=== PATIENT | male | born 1965 | race African-American/Black ===

== ENCOUNTER 2018-05-23 08:03 | Emergency (ER) | payer BC ==
[~2018-05-23] VITALS: Ht 177.8 cm; Wt 97.1 kg
[2018-05-23 08:43] LABS: Basophils # (auto) 0.1 uL; Basophils % (auto) 0.9 % (0.0-2.0); Eosinophils # (auto) 0.2 uL; Eosinophils % (auto) 1.5 % (0.0-7.0); Hematocrit 36.6 % (41.0-53.0); Hemoglobin 12.3 g/dL (13.5-17.5); Lymphocytes # (auto) 1.9 uL; Lymphocytes % (auto) 17.8 % (10.0-50.0); Mean Corpuscular Hemoglobin 29.7 pg (28.0-32.0); Mean Corpuscular Hgb Conc. 33.5 g/dL (32.0-36.0); Mean Corpuscular Volume 88.8 fL (80.0-100.0); Monocytes # (auto) 1.2 uL; Neutrophils # (auto) 7.2 uL; Neutrophils % (auto) 68.8 % (37.0-80.0); Platelet Count (auto) 239 10^3/uL (140-450); Red Blood Cells 4.12 10^6/uL (4.5-5.90); Red Cell Distribution Width 14.1 % (11.8-14.3); White Blood Cell 10.5 10^3/uL (4.4-10.8)
[2018-05-23] MEDS ORDERED: ASPirin 81 mg TAB PO ONE (08:45)
[2018-05-23] MEDS ORDERED: NITROGLYCERIN 0.4 MG SL TAB SL ONE (08:45)
[2018-05-23 09:20] LABS: Alanine Aminotransferase 22 U/L (16-61); Albumin 3.7 g/dL (3.4-5.0); Alkaline Phosphatase 60 U/L (45-117); Anion Gap 10 (5-15); Aspartate Aminotransferase 14 U/L (15-37); BUN/Creatinine Ratio 12.4; Bilirubin, Total 0.5 mg/dL (0.2-1.0); Blood Urea Nitrogen 16 mg/dL (7-18); Calcium 8.7 mg/dL (8.5-10.1); Carbon Dioxide 25 mmol/L (21-32); Chloride 106 mmol/L (98-107); GFR African American 76 mL/min; GFR Non-African American 62 mL/min; Glucose 173 mg/dL (74-106); Sodium 141 mmol/L (136-145); Total Protein 7.9 g/dL (6.4-8.2)
[2018-05-23] MEDS ORDERED: AZITHROMYCIN 500MG/ 250ML 250 ML IV ONE (13:30)
[2018-05-23] MEDS ORDERED: cefTRIAXone 1GM/10ml IVPUSH 10 ML IV ONE (13:30)
[2018-05-23 13:36] VITALS: BP 131/78
== END 2018-05-23 14:34 | disposition left against medical advice (07) ==
LOC: ER 08:03
DX: I24.9 Acute ischemic heart disease, unspecified (principal); E11.9 Type 2 diabetes mellitus without complications; E78.5 Hyperlipidemia, unspecified; I10 Essential (primary) hypertension; F17.210 Nicotine dependence, cigarettes, uncomplicated; Z53.29 Procedure and treatment not carried out because of patient's decision for other reasons
CPT/HCPCS: 36415; 71046; 80053; 84484; 85025; 93005; 94761; 96365; 96375; 99285; J0456; J0696

== ENCOUNTER 2018-05-27 17:46 | Inpatient (IN) | payer BC ==
[~2018-05-27] VITALS: Ht 177.8 cm; Wt 99.2 kg
[2018-05-27] MEDS ORDERED: IPRATROPIUM BROM 0.5 MG/2.5ML INH SOL NEB ONE (19:15)
[2018-05-27] MEDS ORDERED: ALBUTEROL SULF 2.5 MG/0.5ML(0.5%) NEB SOLN NEB ONE (19:15)
[2018-05-27] MEDS ORDERED: methylPREDNISolone SOD SUCC 125 MG/2 ML VL IM ONE (19:15)
[2018-05-27] MEDS ORDERED: cefTRIAXone SOD 1,000 MG VL IM ONE (19:15)
[2018-05-27] MEDS ORDERED: LIDOCAINE 1% (LOCAL ANESTH.) PF 5ml SDV ONE (20:02)
[2018-05-27] MEDS ORDERED: TUBERCULIN PPD 5 UNIT/0.1 ML ID ONE (21:45)
[2018-05-27 22:44] LABS: Basophils # (auto) 0 uL; Basophils % (auto) 0.3 % (0.0-2.0); Eosinophils # (auto) 0 uL; Eosinophils % (auto) 0.3 % (0.0-7.0); Hematocrit 35.1 % (41.0-53.0); Hemoglobin 12.2 g/dL (13.5-17.5); Lymphocytes # (auto) 0.7 uL; Lymphocytes % (auto) 6.7 % (10.0-50.0); Mean Corpuscular Hemoglobin 30.6 pg (28.0-32.0); Mean Corpuscular Hgb Conc. 34.7 g/dL (32.0-36.0); Mean Corpuscular Volume 88.3 fL (80.0-100.0); Monocytes # (auto) 0.5 uL; Monocytes % (auto) 4.4 % (0.0-12.0); Neutrophils # (auto) 9.7 uL; Neutrophils % (auto) 88.3 % (37.0-80.0); Nucleated Red Blood Cells % 0.1 %; Platelet Count (auto) 277 10^3/uL (140-450); Red Blood Cells 3.98 10^6/uL (4.5-5.90); Red Cell Distribution Width 13.9 % (11.8-14.3)
[2018-05-27 22:58] LABS: Albumin 2.9 g/dL (3.4-5.0); BUN/Creatinine Ratio 18.6
[2018-05-27 23:01] LABS: Bilirubin, Total 0.6 mg/dL (0.2-1.0); Total Protein 8.2 g/dL (6.4-8.2)
[2018-05-28] MEDS ORDERED: ACETAMINOPHEN 500 MG TAB PO PRN (01:30)
[2018-05-28] MEDS ORDERED: POTASSIUM CHL 20 Meq TABLET PO ONE (04:00)
[2018-05-28] MEDS ORDERED: DEXTROSE (50%) 50ML SYRG IV PRN (04:00)
[2018-05-28] MEDS: metroNIDAZOLE 500MG/100ML 100 ML IV SCH ×2 (05:16→14:45)
[2018-05-28] MEDS: ACCU-CHEK COMFORT CURVE STRIP VI SCH ×4 (06:35→21:21)
[2018-05-28] MEDS: buPROPion HCL 75 MG TAB PO SCH ×2 (06:36→18:46)
[2018-05-28] MEDS: InsuLIN REG 1unit/0.01ml Soln (100units/ml) SC SCH ×4 (06:36→21:22)
[2018-05-28 10:37] LABS: Basophils # (auto) 0.1 uL; Basophils % (auto) 0.5 % (0.0-2.0); Eosinophils # (auto) 0 uL; Hematocrit 37.1 % (41.0-53.0); Hemoglobin 12.4 g/dL (13.5-17.5); Lymphocytes % (auto) 7.7 % (10.0-50.0); Mean Corpuscular Hemoglobin 29.7 pg (28.0-32.0); Mean Corpuscular Hgb Conc. 33.4 g/dL (32.0-36.0); Mean Corpuscular Volume 88.8 fL (80.0-100.0); Monocytes # (auto) 0.4 uL; Monocytes % (auto) 3.2 % (0.0-12.0); Neutrophils # (auto) 11.7 uL; Neutrophils % (auto) 88.6 % (37.0-80.0); Platelet Count (auto) 313 10^3/uL (140-450); Red Blood Cells 4.17 10^6/uL (4.5-5.90); Red Cell Distribution Width 14.1 % (11.8-14.3); White Blood Cell 13.2 10^3/uL (4.4-10.8)
[2018-05-28 10:53] LABS: BUN/Creatinine Ratio 19.5; Calcium 9.2 mg/dL (8.5-10.1); Potassium 3.4 mmol/L (3.5-5.1)
[2018-05-28] MEDS: HCTZ 25 MG TAB PO SCH (11:00)
[2018-05-28] MEDS: LISINOPRIL 20 MG TAB PO SCH (11:00)
[2018-05-28] MEDS: ISONIAZID 300 MG TAB PO SCH (11:00)
[2018-05-28 12:56] VITALS: BP 117/88
[2018-05-28 17:17] VITALS: BP 131/74
[2018-05-28] MEDS ORDERED: VANCOMYCIN PER PHARMACY 0 MG IV SCH (19:00)
[2018-05-28] MEDS: VANCOMYCIN 1GM/250ML 250 ML IV SCH (19:55)
[2018-05-28] MEDS: ATORVASTATIN 20 MG TAB PO SCH (21:21)
[2018-05-28 21:49] VITALS: BP 125/80
[2018-05-29] MEDS: PIPERACILLIN-TAZO 4.5GM 100 ML IV SCH ×4 (00:06→17:30)
[2018-05-29 05:00] VITALS: BP 132/84
[2018-05-29] MEDS: buPROPion HCL 75 MG TAB PO SCH ×2 (06:25→18:26)
[2018-05-29] MEDS: ACCU-CHEK COMFORT CURVE STRIP VI SCH ×4 (06:26→22:27)
[2018-05-29] MEDS: InsuLIN REG 1unit/0.01ml Soln (100units/ml) SC SCH ×4 (06:26→22:28)
[2018-05-29] MEDS: VANCOMYCIN 1GM/250ML 250 ML IV SCH ×2 (08:38→19:59)
[2018-05-29 09:48] VITALS: BP 118/70
[2018-05-29] MEDS: ISONIAZID 300 MG TAB PO SCH (10:06)
[2018-05-29] MEDS: HCTZ 25 MG TAB PO SCH (10:06)
[2018-05-29] MEDS: LISINOPRIL 20 MG TAB PO SCH (10:07)
[2018-05-29 13:00] VITALS: BP 137/75
[2018-05-29 17:17] VITALS: BP 114/87
[2018-05-29 21:53] VITALS: BP 134/78
[2018-05-29] MEDS: ATORVASTATIN 20 MG TAB PO SCH (22:27)
[2018-05-30] MEDS: PIPERACILLIN-TAZO 4.5GM 100 ML IV SCH ×4 (00:02→18:56)
[2018-05-30 04:58] VITALS: BP 111/73
[2018-05-30] MEDS: InsuLIN REG 1unit/0.01ml Soln (100units/ml) SC SCH ×4 (06:13→22:10)
[2018-05-30] MEDS: buPROPion HCL 75 MG TAB PO SCH ×2 (06:13→18:57)
[2018-05-30] MEDS: ACCU-CHEK COMFORT CURVE STRIP VI SCH ×4 (06:13→22:10)
[2018-05-30 08:44] LABS: Basophils # (auto) 0.1 uL; Basophils % (auto) 0.9 % (0.0-2.0); Eosinophils # (auto) 0.2 uL; Eosinophils % (auto) 1.8 % (0.0-7.0); Hematocrit 34.7 % (41.0-53.0); Hemoglobin 11.7 g/dL (13.5-17.5); Lymphocytes # (auto) 1.8 uL; Lymphocytes % (auto) 17.9 % (10.0-50.0); Mean Corpuscular Hgb Conc. 33.7 g/dL (32.0-36.0); Mean Corpuscular Volume 88.9 fL (80.0-100.0); Monocytes % (auto) 9.7 % (0.0-12.0); Neutrophils # (auto) 6.8 uL; Neutrophils % (auto) 69.7 % (37.0-80.0); Platelet Count (auto) 314 10^3/uL (140-450); Red Cell Distribution Width 14.4 % (11.8-14.3); White Blood Cell 9.8 10^3/uL (4.4-10.8)
[2018-05-30 09:00] VITALS: BP 127/89
[2018-05-30 09:25] LABS: Albumin 2.8 g/dL (3.4-5.0); Bilirubin, Total 0.5 mg/dL (0.2-1.0); Calcium 8.6 mg/dL (8.5-10.1); Total Protein 7.6 g/dL (6.4-8.2)
[2018-05-30] MEDS: VANCOMYCIN 1GM/250ML 250 ML IV SCH ×2 (09:40→17:56)
[2018-05-30] MEDS: ISONIAZID 300 MG TAB PO SCH (09:41)
[2018-05-30] MEDS: LISINOPRIL 20 MG TAB PO SCH (09:42)
[2018-05-30] MEDS: HCTZ 25 MG TAB PO SCH (10:00)
[2018-05-30 13:00] VITALS: BP 129/88
[2018-05-30] MEDS ORDERED: POTASSIUM CHL 20 Meq TABLET PO ONE (14:30)
[2018-05-30 17:00] VITALS: BP 144/97
[2018-05-30] MEDS ORDERED: FELO5TAB PO (17:40)
[2018-05-30] MEDS ORDERED: LISI10TA6 PO (17:40)
[2018-05-30] MEDS ORDERED: PIO30T PO (17:40)
[2018-05-30] MEDS ORDERED: HYDR25TA4 PO (17:40)
[2018-05-30] MEDS ORDERED: GLYB2.5T8 PO (17:40)
[2018-05-30] MEDS ORDERED: METO25TA5 PO (17:40)
[2018-05-30] MEDS ORDERED: METF-370 PO (17:40)
[2018-05-30] MEDS ORDERED: SITA50TA PO (17:40)
[2018-05-30 22:00] VITALS: BP 156/93
[2018-05-30] MEDS: ATORVASTATIN 20 MG TAB PO SCH (22:09)
[2018-05-31] MEDS: PIPERACILLIN-TAZO 4.5GM 100 ML IV SCH ×4 (00:54→22:33)
[2018-05-31] MEDS: VANCOMYCIN 1GM/250ML 250 ML IV SCH ×2 (02:04→10:39)
[2018-05-31 05:00] VITALS: BP 155/95
[2018-05-31 05:46] LABS: Basophils # (auto) 0 uL; Basophils % (auto) 0.3 % (0.0-2.0); Eosinophils # (auto) 0.2 uL; Eosinophils % (auto) 2.3 % (0.0-7.0); Hematocrit 33.4 % (41.0-53.0); Hemoglobin 11.7 g/dL (13.5-17.5); Lymphocytes # (auto) 1.9 uL; Lymphocytes % (auto) 22.3 % (10.0-50.0); Mean Corpuscular Hgb Conc. 35.1 g/dL (32.0-36.0); Mean Corpuscular Volume 88.2 fL (80.0-100.0); Monocytes # (auto) 0.8 uL; Neutrophils # (auto) 5.5 uL; Neutrophils % (auto) 65.1 % (37.0-80.0); Nucleated Red Blood Cells % 0.3 %; Red Blood Cells 3.78 10^6/uL (4.5-5.90); Red Cell Distribution Width 14.3 % (11.8-14.3); White Blood Cell 8.5 10^3/uL (4.4-10.8)
[2018-05-31 05:47] LABS: Platelet Count (auto) 308 10^3/uL (140-450)
[2018-05-31 06:09] LABS: BUN/Creatinine Ratio 11.5; Calcium 8.4 mg/dL (8.5-10.1)
[2018-05-31] MEDS: InsuLIN REG 1unit/0.01ml Soln (100units/ml) SC SCH ×4 (06:33→22:33)
[2018-05-31] MEDS: buPROPion HCL 75 MG TAB PO SCH ×2 (06:33→18:16)
[2018-05-31] MEDS: ACCU-CHEK COMFORT CURVE STRIP VI SCH ×4 (06:33→22:34)
[2018-05-31 09:02] VITALS: BP 140/73
[2018-05-31] MEDS: ISONIAZID 300 MG TAB PO SCH (10:39)
[2018-05-31] MEDS: LISINOPRIL 20 MG TAB PO SCH (10:40)
[2018-05-31 13:01] VITALS: BP 142/87
[2018-05-31 17:26] VITALS: BP 157/92
[2018-05-31 17:45] VITALS: BP 138/93
[2018-05-31] MEDS: VANCOMYCIN 1,250 MG in D5W 5% 250 ML IV SCH (18:16)
[2018-05-31] MEDS: POTASSIUM CHL 20 Meq TABLET PO SCH (18:17)
[2018-05-31] MEDS: HCTZ 25 MG TAB PO SCH (18:17)
[2018-05-31] MEDS ORDERED: PIPERACILLIN-TAZO 4.5GM 100 ML IV SCH (20:00)
[2018-05-31 22:30] VITALS: BP 149/99
[2018-05-31] MEDS: ATORVASTATIN 20 MG TAB PO SCH (22:33)
[2018-06-01] VITALS (7 sets, daily range): BP systolic 123–156; BP diastolic 65–97
[2018-06-01] MEDS: VANCOMYCIN 1,250 MG in D5W 5% 250 ML IV SCH ×2 (01:43→10:00)
[2018-06-01] MEDS: PIPERACILLIN-TAZO 4.5GM 100 ML IV SCH ×4 (04:15→22:44)
[2018-06-01] MEDS: ACCU-CHEK COMFORT CURVE STRIP VI SCH ×4 (06:36→22:45)
[2018-06-01] MEDS: InsuLIN REG 1unit/0.01ml Soln (100units/ml) SC SCH ×4 (06:36→22:45)
[2018-06-01] MEDS: buPROPion HCL 75 MG TAB PO SCH ×2 (06:36→19:00)
[2018-06-01] MEDS: POTASSIUM CHL 20 Meq TABLET PO SCH (10:00)
[2018-06-01] MEDS: HCTZ 25 MG TAB PO SCH (10:00)
[2018-06-01] MEDS: LISINOPRIL 20 MG TAB PO SCH (10:00)
[2018-06-01] MEDS: ISONIAZID 300 MG TAB PO SCH (10:00)
[2018-06-01] MEDS: VANCOMYCIN 1GM/250ML 250 ML IV SCH (19:25)
[2018-06-01] MEDS: ATORVASTATIN 20 MG TAB PO SCH (22:44)
[2018-06-02] MEDS: VANCOMYCIN 1GM/250ML 250 ML IV SCH ×2 (02:55→11:00)
[2018-06-02] MEDS: PIPERACILLIN-TAZO 4.5GM 100 ML IV SCH ×2 (04:00→10:10)
[2018-06-02 05:00] VITALS: BP 159/69
[2018-06-02 06:22] LABS: Basophils # (auto) 0 uL; Basophils % (auto) 0.6 % (0.0-2.0); Eosinophils # (auto) 0.2 uL; Eosinophils % (auto) 2.6 % (0.0-7.0); Hematocrit 33.2 % (41.0-53.0); Hemoglobin 11.3 g/dL (13.5-17.5); Lymphocytes # (auto) 1.7 uL; Lymphocytes % (auto) 20.2 % (10.0-50.0); Mean Corpuscular Hemoglobin 30.2 pg (28.0-32.0); Mean Corpuscular Volume 88.7 fL (80.0-100.0); Monocytes % (auto) 11.9 % (0.0-12.0); Neutrophils # (auto) 5.3 uL; Neutrophils % (auto) 64.7 % (37.0-80.0); Nucleated Red Blood Cells % 0.1 %; Platelet Count (auto) 369 10^3/uL (140-450); Red Blood Cells 3.74 10^6/uL (4.5-5.90); Red Cell Distribution Width 14.1 % (11.8-14.3); White Blood Cell 8.2 10^3/uL (4.4-10.8)
[2018-06-02] MEDS: ACCU-CHEK COMFORT CURVE STRIP VI SCH ×2 (06:31→11:33)
[2018-06-02] MEDS: InsuLIN REG 1unit/0.01ml Soln (100units/ml) SC SCH ×2 (06:31→11:33)
[2018-06-02] MEDS: buPROPion HCL 75 MG TAB PO SCH (06:31)
[2018-06-02 06:51] LABS: BUN/Creatinine Ratio 7.7; Calcium 8.5 mg/dL (8.5-10.1)
[2018-06-02 07:11] LABS: Potassium 2.9 mmol/L (3.5-5.1)
[2018-06-02] MEDS ORDERED: POTASSIUM CHL 20 Meq TABLET PO ONE (07:30)
[2018-06-02 08:45] VITALS: BP 157/100
[2018-06-02] MEDS: LISINOPRIL 20 MG TAB PO SCH (10:10)
[2018-06-02] MEDS: HCTZ 25 MG TAB PO SCH (10:11)
[2018-06-02] MEDS: POTASSIUM CHL 20 Meq TABLET PO SCH (10:12)
[2018-06-02] MEDS: ISONIAZID 300 MG TAB PO SCH (10:15)
[2018-06-02 13:00] VITALS: BP 164/102
== END 2018-06-02 18:23 | disposition home or self-care (01) | DRG 195 ==
LOC: ER 17:50 → OVERFLOW 17:51 → WEST WING 05-28 08:12
PROVIDERS: ADMIT Nurse Practitioner Family; ATTEND Internal Medicine Pulmonary Disease
DX: J18.9 Pneumonia, unspecified organism (principal); E78.5 Hyperlipidemia, unspecified; E11.9 Type 2 diabetes mellitus without complications; D64.9 Anemia, unspecified; E87.6 Hypokalemia; F17.210 Nicotine dependence, cigarettes, uncomplicated; I10 Essential (primary) hypertension
CPT/HCPCS: 36415; 71046; 71250; 80048; 80053; 80202; 82962; 85025; 85652; 87040; 87070; 87205; 94640; 96365; 96367; 96372; A6257; J0696; J1815; J2543; J3490; J7060

== ENCOUNTER 2018-09-25 09:02 | Emergency (ER) | payer BC ==
[~2018-09-25] VITALS: Ht 180.3 cm; Wt 97.1 kg
[~2018-09-25 09:02] MED LIST: FELO5TAB PO; GLYB2.5T8 PO; HYDR25TA4 PO; LISI10TA6 PO; METF-370 PO; METO25TA5 PO; PIO30T PO; SITA50TA PO
[2018-09-25 09:05] VITALS: BP 175/91
[2018-09-25] MEDS ORDERED: KETOROLAC TROMETH 60MG/2ML VIAL IM ONE (10:00)
[2018-09-25] MEDS ORDERED: METHOCARBAMOL 500 MG TAB PO ONE (10:00)
== END 2018-09-25 10:27 | disposition home or self-care (01) ==
LOC: ER 09:02
DX: M75.01 Adhesive capsulitis of right shoulder (principal); E11.9 Type 2 diabetes mellitus without complications; E78.5 Hyperlipidemia, unspecified; I10 Essential (primary) hypertension; F17.210 Nicotine dependence, cigarettes, uncomplicated; W01.0XXA Fall on same level from slipping, tripping and stumbling without subsequent striking against object, initial encounter; Y93.89 Activity, other specified; Y92.89 Other specified places as the place of occurrence of the external cause; Y99.8 Other external cause status
CPT/HCPCS: 73030; 96372; 99283; J1885

== ENCOUNTER 2018-10-13 00:44 | Inpatient (IN) | payer BC ==
[~2018-10-13] VITALS: Ht 180.3 cm; Wt 93.0 kg
[2018-10-13] MEDS ORDERED: ACETAMINOPHEN 325 MG TAB PO ONE (01:45)
[2018-10-13 02:20] LABS: Basophils # (auto) 0.1 uL; Basophils % (auto) 0.4 % (0.0-2.0); Eosinophils # (auto) 0 uL; Eosinophils % (auto) 0.1 % (0.0-7.0); Hematocrit 35.3 % (41.0-53.0); Hemoglobin 11.7 g/dL (13.5-17.5); Lymphocytes # (auto) 2.2 uL; Lymphocytes % (auto) 15.2 % (10.0-50.0); Mean Corpuscular Hemoglobin 29.1 pg (28.0-32.0); Mean Corpuscular Hgb Conc. 33.1 g/dL (32.0-36.0); Mean Corpuscular Volume 87.8 fL (80.0-100.0); Monocytes # (auto) 2.1 uL; Monocytes % (auto) 14.6 % (0.0-12.0); Neutrophils # (auto) 10.2 uL; Neutrophils % (auto) 69.7 % (37.0-80.0); Platelet Count (auto) 192 10^3/uL (140-450); Red Blood Cells 4.02 10^6/uL (4.5-5.90); White Blood Cell 14.6 10^3/uL (4.4-10.8)
[2018-10-13 02:37] LABS: Albumin 3.2 g/dL (3.4-5.0); BUN/Creatinine Ratio 11.9; Calcium 8.4 mg/dL (8.5-10.1); Magnesium 2.2 mg/dL (1.6-2.6); Potassium 3.1 mmol/L (3.5-5.1)
[2018-10-13 02:39] LABS: INR 1.05 (0.9-1.15); Partial Thromboplastin Time 27.1 sec (23.78-33.04); Prothrombin Time 11.2 sec (9.27-12.13)
[2018-10-13 02:41] LABS: Bilirubin, Total 0.5 mg/dL (0.2-1.0); Total Protein 7.9 g/dL (6.4-8.2)
[2018-10-13] MEDS ORDERED: AZITHROMYCIN 500MG/ 250ML 250 ML IV ONE (08:15)
[2018-10-13] MEDS ORDERED: cefTRIAXone 1GM/50ML D5W 50 ML IV ONE (08:15)
[2018-10-13] MEDS ORDERED: OSELTAMIVIR 75 MG CAP PO ONE (10:30)
[2018-10-13] MEDS ORDERED: VANCOMYCIN PER PHARMACY 0 MG IV SCH (10:30)
[2018-10-13] MEDS ORDERED: ACETAMINOPHEN 500 MG TAB PO PRN (10:30)
[2018-10-13] MEDS ORDERED: LORazepam 0.5 MG TAB PO PRN (10:30)
[2018-10-13] MEDS ORDERED: ALBUTEROL SULF 2.5 MG/0.5ML(0.5%) NEB SOLN NEB PRN (10:30)
[2018-10-13] MEDS ORDERED: DEXTROSE (50%) 50ML SYRG IV PRN (10:30)
[2018-10-13] MEDS ORDERED: NITROGLYCERIN 0.4 MG SL TAB SL PRN (10:30)
[2018-10-13] MEDS ORDERED: PROMETHAZINE HCL 25 MG/ML 1ML IV PRN (10:30)
[2018-10-13] MEDS ORDERED: LACTULOSE 20Gm/30ML SOLN PO PRN (10:30)
[2018-10-13] MEDS ORDERED: MORPHINE SULFATE 10 MG/ML INJ 1ML SDV IV PRN ×2 (10:30)
[2018-10-13] MEDS ORDERED: PIPERACILLIN-TAZOB 3.375GM 100 ML IV ONE (10:30)
[2018-10-13] MEDS: SODIUM CHLORIDE 0.9% 1,000 ML IV SCH ×2 (10:56→20:20)
[2018-10-13] MEDS ORDERED: PANTOPRAZOLE 40 MG TAB PO ONE (11:00)
[2018-10-13] MEDS ORDERED: ENOXAPARIN SOD 40 MG/0.4 ML SYRINGE SC ONE (11:00)
[2018-10-13] MEDS: ALBUTEROL SULF 2.5 MG/0.5ML(0.5%) NEB SOLN NEB SCH ×2 (11:42→17:59)
[2018-10-13] MEDS: VANCOMYCIN 1GM/250ML 250 ML IV SCH ×2 (12:20→22:59)
[2018-10-13] MEDS: InsuLIN REG 1unit/0.01ml Soln (100units/ml) SC SCH ×4 (12:21→22:00)
[2018-10-13] MEDS: ACCU-CHEK COMFORT CURVE STRIP VI SCH ×3 (12:21→22:00)
[2018-10-13] MEDS: PIPERACILLIN-TAZOB 3.375GM 100 ML IV SCH ×2 (13:30→17:23)
[2018-10-13 14:00] VITALS: BP 150/97
--- NOTE | 2018-10-13 14:50 | NUR ---
Telemetry admit from ER Patient admitted to Telemetry unit after SBAR received from RNMary. Patient oriented to PATRICIA VELAZQUEZ, primary RN, unit, room, bed, and unit policies regarding patient care and visiting hours. Family at bedside.Patient now on continuous telemetry monitoring, tele box #40 and telemetry reading on arrival to unit is sinus tachycardia. Patient weighed by bed scale and encouraged to call if they need something. All questions and concerns addressed, patient and verbalized understanding.
--- NOTE | 2018-10-13 15:59 | NUR ---
PYREXIA Patient presented with elevated temperature, 102 degrees. Administered prn 500mg Tylenol as ordered and initiated cooling measures. Reassessment temperature 100.5 degrees. Will continue to monitor.
[2018-10-13 17:00] VITALS: BP 145/87
--- NOTE | 2018-10-13 17:50 | NUR ---
INFLUENZA Ordered influenza swab sent to lab via bullet.
[2018-10-13 22:00] VITALS: BP 129/68
[2018-10-13] MEDS ORDERED: OSELTAMIVIR 75 MG CAP PO SCH (22:00)
--- NOTE | 2018-10-13 22:00 | NUR ---
Paged hospitalist regarding patients temperature @103.0 heart rate sustaining in the 130's and potassium level @ 3.1. Cooling measures applied. Will give [place] for patients aches and temperature.
[2018-10-13] MEDS: HYDROcodone-ACET 5/325MG TAB PO PRN (22:15)
[2018-10-13] MEDS ORDERED: METOPROLOL TARTRATE 25 MG TAB PO ONE (22:30)
[2018-10-13] MEDS ORDERED: LISINOPRIL 10 MG TAB PO ONE (22:30)
--- NOTE | 2018-10-13 22:32 | NUR ---
Spoke with Balwinder MAI. New orders to continue patients home cardiac medications. He will not give any potassium at this time since lab draw was from 0200. Nothing was given according to day nurse Dariana when receiving report. Will give tylenol or norco per orders for temperature and continue cooling measures. Call light within reach. Bed in low position.
[2018-10-13] MEDS: TEMAZEPAM 15 MG CAP PO PRN (23:20)
[2018-10-13 23:25] LABS: Urine Bacteria NONE SEEN /hpf (None Seen); Urine Blood 2+ /uL (Negative); Urine Specific Gravity 1.015 (1.001-1.035); Urine WBC 2 /hpf (0 - 3)
[2018-10-14] MEDS: ALBUTEROL SULF 2.5 MG/0.5ML(0.5%) NEB SOLN NEB SCH ×4 (00:27→19:47)
[2018-10-14] MEDS ORDERED: guaiFENesin-DM 100/10mg/5ml SYR PO ONE (01:15)
[2018-10-14] MEDS: PIPERACILLIN-TAZOB 3.375GM 100 ML IV SCH ×4 (01:40→17:45)
--- NOTE | 2018-10-14 01:41 | NUR ---
Lakshmi Britt to request a cough suppressant for patients nagging cough. New orders carried out. Temperature has decreased from 103* to 100*. Continuing with cooling measures. No distress noted at this time. Heart rate also decreased to low 100's from 130's. Continuing to monitor. Antibiotics infused per order.
--- NOTE | 2018-10-14 01:46 | NUR ---
UA sent to lab.
[2018-10-14 05:00] VITALS: BP 131/80
[2018-10-14 06:10] LABS: Basophils # (auto) 0 uL; Basophils % (auto) 0.4 % (0.0-2.0); Eosinophils # (auto) 0.1 uL; Eosinophils % (auto) 0.8 % (0.0-7.0); Hematocrit 35.2 % (41.0-53.0); Hemoglobin 11.8 g/dL (13.5-17.5); Lymphocytes # (auto) 1.4 uL; Lymphocytes % (auto) 11.9 % (10.0-50.0); Mean Corpuscular Hemoglobin 29.5 pg (28.0-32.0); Mean Corpuscular Hgb Conc. 33.6 g/dL (32.0-36.0); Mean Corpuscular Volume 87.9 fL (80.0-100.0); Monocytes # (auto) 1.6 uL; Monocytes % (auto) 13.4 % (0.0-12.0); Neutrophils # (auto) 8.6 uL; Neutrophils % (auto) 73.5 % (37.0-80.0); Nucleated Red Blood Cells % 0.1 %; Platelet Count (auto) 177 10^3/uL (140-450); Red Blood Cells 4.01 10^6/uL (4.5-5.90); Red Cell Distribution Width 15.6 % (11.8-14.3); White Blood Cell 11.7 10^3/uL (4.4-10.8)
[2018-10-14] MEDS: SODIUM CHLORIDE 0.9% 1,000 ML IV SCH ×2 (06:20→17:46)
[2018-10-14 06:27] LABS: Albumin 2.5 g/dL (3.4-5.0); Calcium 7.8 mg/dL (8.5-10.1)
[2018-10-14 06:32] LABS: BUN/Creatinine Ratio 8.5; Total Protein 7.2 g/dL (6.4-8.2)
[2018-10-14 06:39] LABS: Potassium 2.9 mmol/L (3.5-5.1)
[2018-10-14] MEDS: ACCU-CHEK COMFORT CURVE STRIP VI SCH ×4 (06:57→22:00)
[2018-10-14] MEDS: InsuLIN REG 1unit/0.01ml Soln (100units/ml) SC SCH ×4 (06:57→22:00)
[2018-10-14] MEDS: HYDROcodone-ACET 5/325MG TAB PO PRN ×2 (06:58→18:54)
--- NOTE | 2018-10-14 07:15 | NUR ---
Open Shift Note Received report on patient, awake and sitting up in bed. Patient shows no signs of distress at this time. Discussed POC with patient. Bed in lowest locked position, side rails up x2, and call light within reach. Will continue to monitor.
[2018-10-14] MEDS ORDERED: POTASSIUM CHL 20 Meq TABLET PO ONE (07:30)
--- NOTE | 2018-10-14 08:30 | NUR ---
at Bedside Patient's at bedside.
[2018-10-14 08:46] VITALS: BP 137/74
[2018-10-14] MEDS: LISINOPRIL 10 MG TAB PO SCH (10:00)
[2018-10-14] MEDS: AZITHROMYCIN 500MG/ 250ML 250 ML IV SCH (10:00)
[2018-10-14] MEDS: ENOXAPARIN SOD 40 MG/0.4 ML SYRINGE SC SCH (10:00)
[2018-10-14] MEDS: PANTOPRAZOLE 40 MG TAB PO SCH (10:00)
[2018-10-14] MEDS: METOPROLOL TARTRATE 25 MG TAB PO SCH ×2 (10:00→22:00)
--- NOTE | 2018-10-14 10:00 | NUR ---
Re: Patient Took Home Medications Patient informed day shift nurse that he took his morning home medications: Lopressor, Lisinopril, and Felodipine. Educated patient that he is to not take any medications from home on his own because duplicates can be given/interactions can occur. Patient stated "Well the maintenance technician 3rd shift nurse told me they were having trouble getting my home meds ordered". Informed the patient that there were new orders in place for him to receive Lopressor and Lisinopril at 1000. Patient verbalized understanding and stated he would not do it again. Stated his took the medications home with her. 1000 scheduled Lopressor and Lisinopril were not given due to patient already taking them.
[2018-10-14] MEDS: VANCOMYCIN 1GM/250ML 250 ML IV SCH ×2 (11:59→23:06)
--- NOTE | 2018-10-14 15:36 | NUR ---
Dr Diaz at Bedside Dr Garry Diaz at patient bedside.
[2018-10-14 17:26] VITALS: BP 105/66
--- NOTE | 2018-10-14 18:53 | NUR ---
End of Shift Endorsed care to NOC nurse Reina. Patient shows no signs of distress at this time. Bed in lowest locked position, side rails up x2, and call light within reach.
[2018-10-14 20:00] VITALS: BP 137/74
[2018-10-14 22:00] VITALS: BP 108/64
[2018-10-14] MEDS: methylPREDNISolone SOD SUCC 40 MG/ML VL IV SCH (22:48)
[2018-10-14] MEDS: TEMAZEPAM 15 MG CAP PO PRN (23:04)
[2018-10-15] MEDS: ALBUTEROL SULF 2.5 MG/0.5ML(0.5%) NEB SOLN NEB SCH ×5 (01:15→23:43)
[2018-10-15] MEDS: SODIUM CHLORIDE 0.9% 1,000 ML IV SCH ×3 (02:20→22:20)
[2018-10-15 05:00] VITALS: BP 118/75
[2018-10-15 05:28] LABS: Basophils # (auto) 0 uL; Basophils % (auto) 0.2 % (0.0-2.0); Eosinophils # (auto) 0 uL; Eosinophils % (auto) 0.4 % (0.0-7.0); Hematocrit 30.7 % (41.0-53.0); Hemoglobin 10.4 g/dL (13.5-17.5); Lymphocytes # (auto) 0.7 uL; Lymphocytes % (auto) 5.2 % (10.0-50.0); Mean Corpuscular Hemoglobin 29.6 pg (28.0-32.0); Mean Corpuscular Hgb Conc. 33.9 g/dL (32.0-36.0); Mean Corpuscular Volume 87.3 fL (80.0-100.0); Monocytes # (auto) 0.3 uL; Monocytes % (auto) 2.7 % (0.0-12.0); Neutrophils # (auto) 11.9 uL; Neutrophils % (auto) 91.5 % (37.0-80.0); Nucleated Red Blood Cells % 0.8 %; Platelet Count (auto) 200 10^3/uL (140-450); Red Blood Cells 3.51 10^6/uL (4.5-5.90); Red Cell Distribution Width 15.4 % (11.8-14.3)
[2018-10-15] MEDS: PIPERACILLIN-TAZOB 3.375GM 100 ML IV SCH ×4 (05:42→22:20)
[2018-10-15] MEDS: methylPREDNISolone SOD SUCC 40 MG/ML VL IV SCH ×3 (05:42→22:19)
[2018-10-15 05:45] LABS: Albumin 2.4 g/dL (3.4-5.0); Potassium 3.9 mmol/L (3.5-5.1)
[2018-10-15 05:49] LABS: BUN/Creatinine Ratio 14.6; Bilirubin, Total 0.6 mg/dL (0.2-1.0); Total Protein 7.2 g/dL (6.4-8.2)
[2018-10-15] MEDS: InsuLIN REG 1unit/0.01ml Soln (100units/ml) SC SCH ×4 (06:48→22:00)
[2018-10-15] MEDS: ACCU-CHEK COMFORT CURVE STRIP VI SCH ×4 (06:48→22:00)
--- NOTE | 2018-10-15 07:15 | NUR ---
Open Shift Note Received report on patient, asleep but awoken when entered. Patients states they were able to get some sleep last night. States pain 0/10. Discussed POC with patient. Bed in lowest locked position, side rails up x2, and call light within reach. Will continue to monitor.
[2018-10-15 09:45] VITALS: BP 121/72
[2018-10-15] MEDS ORDERED: FELODIPINE 5 MG PO SCH (10:00)
[2018-10-15] MEDS: LISINOPRIL 10 MG TAB PO SCH (10:11)
[2018-10-15] MEDS: AZITHROMYCIN 500MG/ 250ML 250 ML IV SCH (10:12)
[2018-10-15] MEDS: ENOXAPARIN SOD 40 MG/0.4 ML SYRINGE SC SCH (10:12)
[2018-10-15] MEDS: METOPROLOL TARTRATE 25 MG TAB PO SCH ×2 (10:12→22:00)
[2018-10-15] MEDS: PANTOPRAZOLE 40 MG TAB PO SCH (10:15)
[2018-10-15] MEDS ORDERED: FELODIPINE 10 MG PO SCH (10:30)
[2018-10-15 12:07] VITALS: BP 123/77
[2018-10-15] MEDS: FELODIPINE 10 MG PO SCH (12:07)
[2018-10-15] MEDS: VANCOMYCIN 1,250 MG in D5W 5% 250 ML IV SCH ×2 (12:07→23:56)
--- NOTE | 2018-10-15 12:23 | NUR ---
Dr Diaz at Bedside Dr Garry Diaz at patient bedside.
--- NOTE | 2018-10-15 16:39 | NUR ---
Dr Phipps at Bedside Dr Villalpando at patient bedside.
[2018-10-15 17:18] VITALS: BP 134/83
--- NOTE | 2018-10-15 19:09 | NUR ---
End of Shift Endorsed care to NOC nurse. Patient shows no signs of distress at this time. Bed in lowest locked position, side rails up x2, and call light within reach.
[2018-10-15 22:19] VITALS: BP 113/80
[2018-10-15] MEDS: HYDROcodone-ACET 5/325MG TAB PO PRN (23:00)
[2018-10-16] MEDS: TEMAZEPAM 15 MG CAP PO PRN (01:11)
[2018-10-16] MEDS: PIPERACILLIN-TAZOB 3.375GM 100 ML IV SCH ×3 (04:00→14:09)
[2018-10-16 04:38] VITALS: BP 125/78
[2018-10-16 05:26] LABS: Basophils # (auto) 0.2 uL; Eosinophils # (auto) 0 uL; Hematocrit 31.5 % (41.0-53.0); Hemoglobin 10.6 g/dL (13.5-17.5); Lymphocytes # (auto) 0.8 uL; Lymphocytes % (auto) 4.5 % (10.0-50.0); Mean Corpuscular Hemoglobin 29.5 pg (28.0-32.0); Mean Corpuscular Hgb Conc. 33.7 g/dL (32.0-36.0); Mean Corpuscular Volume 87.4 fL (80.0-100.0); Monocytes # (auto) 0.9 uL; Monocytes % (auto) 5.5 % (0.0-12.0); Neutrophils # (auto) 15.2 uL; Platelet Count (auto) 253 10^3/uL (140-450); Red Cell Distribution Width 15.1 % (11.8-14.3); White Blood Cell 17.1 10^3/uL (4.4-10.8)
[2018-10-16 05:56] LABS: Albumin 2.3 g/dL (3.4-5.0); BUN/Creatinine Ratio 20.8; Calcium 8.6 mg/dL (8.5-10.1); Potassium 3.9 mmol/L (3.5-5.1)
[2018-10-16 05:58] LABS: Bilirubin, Total 0.5 mg/dL (0.2-1.0)
[2018-10-16] MEDS: methylPREDNISolone SOD SUCC 40 MG/ML VL IV SCH ×2 (06:20→14:09)
[2018-10-16] MEDS: ACCU-CHEK COMFORT CURVE STRIP VI SCH ×3 (06:52→17:00)
[2018-10-16] MEDS: InsuLIN REG 1unit/0.01ml Soln (100units/ml) SC SCH ×3 (06:52→17:00)
--- NOTE | 2018-10-16 06:53 | NUR ---
Patient downgraded to M/S. Tele box returned to JESENIA. Patient awake and alert. Verbalized sweating in bed last night due to heater. Afebrile throughout night. Will change linens again soon. IV infusing per order. No complaints of pain at this time, no distress noted.
[2018-10-16] MEDS: ALBUTEROL SULF 2.5 MG/0.5ML(0.5%) NEB SOLN NEB SCH ×3 (07:20→19:12)
--- NOTE | 2018-10-16 07:50 | NUR ---
Opening Shift Note Assumed care of patient, awake and alert. No S/S of distress/SOB or pain. Instructed on POC and to call for assist PRN, will continue to monitor for changes Q1hr and PRN.
[2018-10-16] MEDS: SODIUM CHLORIDE 0.9% 1,000 ML IV SCH (08:20)
[2018-10-16 09:00] VITALS: BP 124/76
[2018-10-16] MEDS ORDERED: AZITHROMYCIN 500MG/ 250ML 250 ML IV SCH (09:00)
[2018-10-16 10:09] VITALS: BP 125/78
[2018-10-16] MEDS: ENOXAPARIN SOD 40 MG/0.4 ML SYRINGE SC SCH (10:14)
[2018-10-16] MEDS: METOPROLOL TARTRATE 25 MG TAB PO SCH (10:14)
[2018-10-16] MEDS: PANTOPRAZOLE 40 MG TAB PO SCH (10:14)
[2018-10-16] MEDS: LISINOPRIL 10 MG TAB PO SCH (10:15)
[2018-10-16] MEDS: FELODIPINE 10 MG PO SCH (10:15)
[2018-10-16] MEDS: VANCOMYCIN 1,250 MG in D5W 5% 250 ML IV SCH (12:14)
--- NOTE | 2018-10-16 12:49 | NUR ---
Nutrition Assessment Notes please see attached link for complete assessment Est. Needs BW [id number] kcal (23-25 kcal/kgBW), 93-102 gms pro (1.0-1.1 gms/kgBW). Will continue to monitor pertinent labs and reassess nutrient need prn Addendum: 10/16/18 at [address] Amended: Links added.
[2018-10-16 13:00] VITALS: BP 112/64
--- NOTE | 2018-10-16 14:30 | NUR ---
Dr. Diaz at bedside.
[2018-10-16 15:22] VITALS: BP 124/76
[2018-10-16 17:02] VITALS: BP 126/81
--- NOTE | 2018-10-16 19:15 | NUR ---
Report given to night RN.
--- NOTE | 2018-10-16 19:45 | NUR ---
DISCHARGE PAPERWORK GIVEN AND INSTRUCTIONS TO PATIENT. PRESCRIPTIONS GIVEN ALONG WITH WORK RELIEF NOTE FROM DR. SHEN. IV REMOVED TO RIGHT FOREARM AREA. IV HAD BEEN LEAKING. NO SWELLING NOTED, BUT PATIENT REPORTS "IT WAS BOTHERING ME" , CAUSING SOME DISCOMFORT TO HIS ARM. HOME MEDICATION BOTTLE (FELODIPINE) GIVEN BACK TO PATIENT FROM PHARMACY. PATIENT HAS ALL BELONGINGS PACKED UP AND IN HIS BAG. HE WILL BE DRIVING HIMSELF. LIVES IN [place]. PATIENT WAS A PLEASURE TO HAVE. ADVISED PATIENT IF ANY NEW SYMPTOMS OR SOB TO GO TO THE NEAREST ER OR CALL 911. VERBALIZED UNDERSTANDING.
== END 2018-10-16 19:45 | disposition home or self-care (01) | DRG 871 ==
LOC: ER 00:44 → TELE 10:20 → TELE-WESTW 14:43 → WEST WING 10-16 06:13
PROVIDERS: ADMIT Internal Medicine; ATTEND Family Medicine
DX: A41.9 Sepsis, unspecified organism (principal); J18.1 Lobar pneumonia, unspecified organism; J44.0 Chronic obstructive pulmonary disease with (acute) lower respiratory infection; E78.00 Pure hypercholesterolemia, unspecified; E11.22 Type 2 diabetes mellitus with diabetic chronic kidney disease; E11.21 Type 2 diabetes mellitus with diabetic nephropathy; R06.03 Acute respiratory distress; R09.02 Hypoxemia; E78.5 Hyperlipidemia, unspecified; F17.210 Nicotine dependence, cigarettes, uncomplicated; I12.9 Hypertensive chronic kidney disease with stage 1 through stage 4 chronic kidney disease, or unspecified chronic kidney disease; N18.9 Chronic kidney disease, unspecified; Z79.4 Long term (current) use of insulin; Z82.49 Family history of ischemic heart disease and other diseases of the circulatory system; Z87.01 Personal history of pneumonia (recurrent); Z83.3 Family history of diabetes mellitus
CPT/HCPCS: 36415; 71045; 71046; 78582; 80053; 80202; 81001; 82962; 83036; 83605; 83735; 83880; 84484; 85025; 85379; 85610; 85730; 87040; 87070; 87205; 87804; 93005; 93970; 94640; 96365; 96367; 96368; G0378; J0696; J1815; J2543; J7060